=== PATIENT | female | born 1990 | race African-American/Black ===

== ENCOUNTER 2024-01-10 20:21 | Emergency (ER) | payer OTHER ==
[~2024-01-10] VITALS: Ht 177.8 cm; Wt 78.5 kg
[2024-01-10 20:41] VITALS: O2SAT 100
[2024-01-11] MEDS ORDERED: BENZ100C86 MT (03:35)
[2024-01-11] MEDS ORDERED: LEVO750T68 MT (03:35)
[2024-01-11 03:59] VITALS: BP 121/71; PULSE 68; RESP 17; TEMP 36.78072; O2SAT 100
== END 2024-01-11 04:03 | disposition home or self-care (01) ==
LOC: ER 20:21
DX: R05.3 Chronic cough (principal); R07.89 Other chest pain
CPT/HCPCS: 71045; 93005; 99283